=== PATIENT | female | born 1995 | race Caucasian/White ===

== ENCOUNTER 2017-12-09 14:48 | Emergency (ER) | payer BC ==
[2017-12-09 15:09] VITALS: BP 136/73
--- NOTE | 2017-12-09 15:43 | UC ---
Skin Complaint HPI - HPI Summary HPI Summary: 22 y/o female presents to the urgent care c/o B/L inner thighs w/ a red rash for the past 3 days. Pt reports rash started w/ some small blisters and then she got some crusting w/ yellowish discharge. LF thigh is worse than RT. Pt has applied A&B ointment and Vaseline w/o any improvement. Mild pain 2/10 w/ a burning sensation. Pt deneis fever, itchiness, Hx of tick bite, using new detergent, of body lotions. Denies Hx of MRSA, SOB, throat tightness, chest pain , abdominal pain, N/V/D. Pt is UTD w/ her vaccines. - History of Current Complaint Chief Complaint: UCSkin Time Seen by Provider: 12/09/17 15:38 Stated Complaint: SKIN CONCERN Hx Obtained From: Patient Hx Last Menstrual Period: control IUD ?: No Onset/Duration: Gradual Onset, Lasting Days - 3 days, Still Present Skin Exposure Onset/Duration: Days Ago - 3 days Onset Severity: Mild Current Severity: Moderate Pain Intensity: 1 - at touch Pain Scale Used: 0-10 Numeric Location: Discrete Character: Redness, Painful Aggravating Factor(s): Touch Alleviating Factor(s): Nothing Associated Signs & Symptoms: Positive: Rash, Drainage - crusting scab, Tenderness. Negative: Fever, Chills, Throat Tightening Related History: Possible Reaction to: Environmental Exposure - Allergy/Home Medications Allergies/Adverse Reactions: Allergies Allergy/AdvReac Type Severity Reaction Status Date / Time No Known Allergies Allergy Verified 12/09/17 15:01 Home Medications: Home Medications Levonorgestrel (Iud) [Mirena IUD] 1 applic ONCE 12/09/17 [History Confirmed ] Review of Systems Constitutional: Negative Skin: Rash - B/L inner thighs w/ red rash and crusting Eyes: Negative ENT: Negative Respiratory: Negative Cardiovascular: Negative Gastrointestinal: Negative Genitourinary: Negative Motor: Negative Neurovascular: Negative Musculoskeletal: Negative Neurological: Negative Psychological: Negative Is Patient Immunocompromised?: No All Other Systems Reviewed And Are Negative: Yes PMH/Surg Hx/FS Hx/Imm Hx Previously Healthy: Yes - Pt denies PMHX - Surgical History Surgical History: Yes Surgery Procedure, Year, and Place: [place] teeth. Stent x1 in kidney - Family History Known Family History: Positive: None - Pt denies FMHX - Social History Occupation: Student Lives: With Family Alcohol Use: Occasionally Substance Use Type: None Smoking Status (MU): Never Smoked Tobacco - Immunization History Most Recent Tetanus Shot: UTD Vaccination Up to Date: Yes Physical Exam - Summary Physical Exam Summary: Vital Signs Reviewed: Yes General: well developed, well nourished female sitting in the examining table w /o any apparent distress. Eyes: Positive: Conjunctiva Clear - PERRLA, EOMI ENT: Positive: Normal ENT inspection, Hearing grossly normal, Pharynx normal, TMs normal Neck: Positive: Supple, Nontender, No Lymphadenopathy Respiratory: Positive: Chest nontender, Lungs clear, Normal breath sounds Cardiovascular: Positive: RRR, No Murmur, Pulses Normal Abdomen Description: Positive: Nontender, No Organomegaly, Soft. Negative: CVA Tenderness (R), CVA Tenderness (L) Bowel Sounds: Positive: Present Musculoskeletal: Positive: Strength Intact, ROM Intact, No Edema Neurological Exam: Normal Psychological Exam: Normal Skin: Positive: rashes - B/L inner thighs w/ scattered crusted papules w/ surrounding erythema w/ indistinct borders, yellowish crusting w/ some mild yellowish discharge observed in some of them and warm to touch and mild tender to palpation . Signs of excoriation. Triage Information Reviewed: Yes Vital Signs: Initial Vital Signs Temp 98.1 F 12/09/17 15:02 Pulse 69 12/09/17 15:02 Resp 16 12/09/17 15:02 BP 136/73 12/09/17 15:02 Pulse Ox 100 12/09/17 15:02 Course/Dx - Course Course Of Treatment: 22 y/o female presents to the urgent care c/o B/L inner thighs w/ a red rash for the past 3 days. Pt reports rash started w/ some small blisters and then she got some crusting w/ yellowish discharge. LF thigh is worse than RT. Pt has applied A&B ointment and Vaseline w/o any improvement. Mild pain 2/10 w/ a burning sensation. Pt deneis fever, itchiness, Hx of tick bite, using new detergent, of body lotions. Denies Hx of MRSA, SOB, throat tightness, chest pain, abdominal pain, N/V/D. Pt is UTD w/ her vaccines. Pt w/ B/L inner thighs w/ scattered crusted papules w/ surrounding erythema w/ indistinct borders, yellowish crusting observed in osme of them and warm to touch and mild tender to palpation. Signs of excoriation on examination. Pt w/ a co-infected rash. Pt Rx Keflex PO,and topical Bacitracin. Pt advised if rash worsen to f/u w/ Deramtologist Dr Durán for further management. D/C instructions explained. Pt understood and agreed w/ plan of care. - Differential Diagnoses - Skin Complaint Differential Diagnoses: Abscess, Cellulitis, Contact Dermatitis, Impetigo, MRSA , Tick Born Illness, Tinea, Urticaria - Diagnoses Provider Diagnoses: 1- Acute rash w/ co-infection in B/L inner thighs Discharge - Sign-Out/Discharge Documenting (check all that apply): Patient Departure - D/C home - Discharge Plan Condition: Stable Disposition: HOME Prescriptions: Bacitracin OINTMENT* 1 applic TOPICAL BID #1 tube Cephalexin CAP* [Keflex CAP*] 500 mg PO QID #28 cap Patient Education Materials: Acute Rash (ED) Referrals: Jannette Buck MD [Primary Care Provider] - 3 Days Jen Garces [Medical Doctor] - 1 Week Additional Instructions: 1-Please take full course of Antibiotic. Please apply Bacitrain oint on affected area as directed 2- If redness and swelling doubles in size after 48 hrs of taking antibiotic and fever develops please go to the ER immediately. 3- keep area clean and dry. 4-Please F/u with your Devops Architect DR Garces or your PCP in 1 week if not improvement of rash ofr further management. - Billing Disposition and Condition Condition: STABLE Disposition: Home
== END 2017-12-09 16:12 | disposition home or self-care (01) ==
LOC: UCCORT 14:48
DX: R21 Rash and other nonspecific skin eruption (principal); L08.9 Local infection of the skin and subcutaneous tissue, unspecified
CPT/HCPCS: 99202; G0463

== ENCOUNTER 2018-02-26 10:21 | Emergency (ER) | payer BC ==
[2018-02-26 10:49] VITALS: BP 125/73
--- NOTE | 2018-02-26 11:19 | UC ---
Complaint Female HPI - HPI Summary HPI Summary: 22 year old female presents with onset of dysuria, frequency, urgency, and left upper abdominal/flank pain yesterday. Associated with nausea. Denies fever, chills, vomiting, diarrhea, or vaginal discharge. - History Of Current Complaint Chief Complaint: UCGU Stated Complaint: STOMACH PAIN (2 DAYS) Time Seen by Provider: 02/26/18 10:51 Hx Obtained From: Patient Hx Last Menstrual Period: ~02/04/18 ?: No Onset/Duration: Gradual Onset, Lasting Days - 1 Severity Currently: Mild Pain Intensity: 3 Character: Burning Aggravating Factor(s): Urination Alleviating Factor(s): Nothing Associated Signs And Symptoms: Positive: Back Pain, Nausea. Negative: Fever, Vaginal Bleeding/Discharge, Vomiting(# Of Episodes =), Genital Swelling, Genital Blisters - Allergies/Home Medications Allergies/Adverse Reactions: Allergies Allergy/AdvReac Type Severity Reaction Status Date / Time No Known Allergies Allergy Verified 02/26/18 10:44 PMH/Surg Hx/FS Hx/Imm Hx Previously Healthy: Yes GI/ History: Renal Disease - Uerter reimplantation 2005 - Surgical History Surgical History: Yes Surgery Procedure, Year, and Place: [place] Teeth Extractions, 2015; Ureter "Reimplantation", 2005 - Family History Family History: Noncontributory - Social History Occupation: Employed Full-time Lives: With Family Alcohol Use: Occasionally Substance Use Type: None Smoking Status (MU): Never Smoked Tobacco - Immunization History Most Recent Tetanus Shot: UTD Vaccination Up to Date: Yes Review of Systems Constitutional: Negative Skin: Negative Respiratory: Negative Cardiovascular: Negative Gastrointestinal: Abdominal Pain, Nausea Genitourinary: Dysuria, Frequency, Urgency Is Patient Immunocompromised?: No All Other Systems Reviewed And Are Negative: Yes Physical Exam Triage Information Reviewed: Yes Appearance: Well-Appearing, No Pain Distress, Well-Nourished Vital Signs: Initial Vital Signs Temp 97.5 F 02/26/18 10:42 Pulse 98 02/26/18 10:42 Resp 14 02/26/18 10:42 BP 125/73 02/26/18 10:42 Pulse Ox 99 02/26/18 10:42 Respiratory: Positive: Lungs clear, Normal breath sounds, No respiratory distress Cardiovascular: Positive: RRR, No Murmur Abdomen Description: Positive: No Organomegaly, Soft, CVA Tenderness (L), Other : - Mild LUQ tenderness. Negative: Distended, Guarding Neurological: Positive: Alert Skin Exam: Normal Complaint Female Dx - Course Course Of Treatment: 22 year old female with 1 day dysuria, frequency, urgency, and LUQ/flank pain associated with mild nausea. Afebrile. Exam reveals mild LUQ and left CVA tenderness. POC UA 3+ protien, 3+ blood, positive nitrite, and 2+ leukocyte esterase. 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 UTI with likely early pyelonephritis. Will treat with 7 day course ciprofloxacin. She is to follow up with PCP in 7 days if symptoms persist. Warning symptoms reviewed. Verbalizes understanding and agrees with POC. - Differential Dx/Diagnosis Differential Diagnosis/HQI/PQRI: Ureteral Stone, Urinary Tract Infection Provider Diagnoses: Pyelonephritis Discharge - Sign-Out/Discharge Documenting (check all that apply): Patient Departure All imaging exams completed and their final reports reviewed: No Studies - Discharge Plan Condition: Stable Disposition: HOME Prescriptions: Ciprofloxacin HCl 500 mg PO BID #14 tablet Patient Education Materials: Urinary Tract Infection in Women (ED) Referrals: Jannette Buck MD [Primary Care Provider] - 7 Days (If no improvement) Additional Instructions: Your urine test in the clinic today was suggestive of a urinary tract infection. Based on your history and exam I suspect You may be developing an early kidney infection. We will send the urine for culture to see what bacteria grow out and to make sure that the antibiotic you were prescribed is effective against the bacteria. It typically takes 48-72 hours to get these results. Start ciprofoxacin 500 mg 1 tab twice a day for 7 days. Be sure to complete the entire course even if feel better. Make sure you're drinking plenty of fluids. Make sure you are using the bathroom frequently and emptying her bladder completely each time. Wipe from front to back to avoid introducing bacteria into the urinary tract. You should urinate immediately after any sexual intercourse. Follow-up with your primary care provider in 7 days if your symptoms persist. Seek immediate medical attention in the emergency room if you develop a fever greater than 100.5 F, have severe abdominal pain, persistent vomiting, or any worsening of symptoms. - Billing Disposition and Condition Condition: STABLE Disposition: Home
== END 2018-02-26 11:26 | disposition home or self-care (01) ==
LOC: UCCORT 10:21
DX: N12 Tubulo-interstitial nephritis, not specified as acute or chronic (principal); N28.89 Other specified disorders of kidney and ureter; Z96.0 Presence of urogenital implants
CPT/HCPCS: 81003; 84702; 87077; 87086; 87186; 99212; G0463